=== PATIENT | male | born 1970 | race African-American/Black ===

== ENCOUNTER 2022-04-09 06:29 | Emergency (ER) | payer MEDICAID, OTHER ==
[~2022-04-09] VITALS: Ht 180.3 cm; Wt 110.0 kg
[2022-04-09 06:58] LABS: Basophils # (auto) 0 10 ^3/uL (0-0.2); Basophils % (auto) 0.6 % (0.0-2.0); Eosinophils # (auto) 0.1 10 ^3/uL (0-0.8); Eosinophils % (auto) 4.2 % (0.0-7.0); Hematocrit 39.7 % (41.0-53.0); Hemoglobin 12.9 g/dL (13.5-17.5); Lymphocytes # (auto) 0.8 10 ^3/uL (0.4-5.4); Lymphocytes % (auto) 29.6 % (10.0-50.0); Mean Corpuscular Hemoglobin 30.1 pg (28.0-32.0); Mean Corpuscular Hgb Conc. 32.5 g/dL (32.0-36.0); Mean Corpuscular Volume 92.6 fL (80.0-100.0); Monocytes # (auto) 0.2 10 ^3/uL (0-1.3); Monocytes % (auto) 7.1 % (0.0-12.0); Neutrophils # (auto) 1.6 10 ^3/uL (1.6-8.6); Neutrophils % (auto) 58.5 % (37.0-80.0); Nucleated Red Blood Cells % 0.3 %; Red Blood Cells 4.29 10^6/uL (4.5-5.90); Red Cell Distribution Width 13.6 % (11.8-14.3); White Blood Cell 2.7 10^3/uL (4.4-10.8)
[2022-04-09 07:13] LABS: INR 0.99 (0.9-1.15); Partial Thromboplastin Time 29.6 sec (24.6-33.4)
[2022-04-09 07:15] LABS: Albumin 3.6 g/dL (3.4-5.0); BUN/Creatinine Ratio 10.9; Calcium 9.4 mg/dL (8.5-10.1); Potassium 4.5 mmol/L (3.5-5.1)
[2022-04-09 07:17] LABS: Bilirubin, Total 0.6 mg/dL (0.2-1.0); Total Protein 7.2 g/dL (6.4-8.2)
[2022-04-09] MEDS ORDERED: HYDROcodone-ACET 5/325MG TAB PO ONE (08:30)
[2022-04-09] MEDS ORDERED: CYCLOBENZAPRINE HCL 10 MG TAB PO ONE (08:30)
[2022-04-09 09:22] VITALS: BP 142/93
== END 2022-04-09 09:24 | disposition home or self-care (01) ==
LOC: ER 06:29
DX: M62.830 Muscle spasm of back (principal); R07.89 Other chest pain; N17.9 Acute kidney failure, unspecified; D72.819 Decreased white blood cell count, unspecified; Z88.0 Allergy status to penicillin
CPT/HCPCS: 36415; 71045; 80053; 83880; 84484; 85025; 85610; 85730; 93005

== ENCOUNTER 2023-08-21 01:43 | Emergency (ER) | payer MEDICAID ==
[~2023-08-21] VITALS: Ht 180.3 cm; Wt 112.4 kg
[2023-08-21 02:49] LABS: Basophils # (auto) 0.1 10 ^3/uL (0-0.2); Basophils % (auto) 1.2 % (0.0-2.0); Eosinophils # (auto) 0.1 10 ^3/uL (0-0.8); Hematocrit 33.4 % (41.0-53.0); Lymphocytes # (auto) 0.3 10 ^3/uL (0.4-5.4); Lymphocytes % (auto) 5.8 % (10.0-50.0); Mean Corpuscular Hemoglobin 29.7 pg (28.0-32.0); Monocytes # (auto) 0.3 10 ^3/uL (0-1.3); Monocytes % (auto) 6.2 % (0.0-12.0); Neutrophils # (auto) 3.7 10 ^3/uL (1.6-8.6); Neutrophils % (auto) 83.8 % (37.0-80.0); Nucleated Red Blood Cells % 0.1 %; Red Blood Cells 3.71 10^6/uL (4.5-5.90); Red Cell Distribution Width 13.9 % (11.8-14.3); White Blood Cell 4.4 10^3/uL (4.4-10.8)
[2023-08-21 03:07] LABS: Alanine Aminotransferase 20 U/L (7-40); Albumin 4.1 g/dL (3.2-4.8); Alkaline Phosphatase 58 U/L (46-116); Anion Gap 7 (5-15); Aspartate Aminotransferase 21 U/L (13-40); BUN/Creatinine Ratio 11.3 (10.0-20.0); Blood Urea Nitrogen 18 mg/dL (9-23); Calcium 9.4 mg/dL (8.7-10.4); Carbon Dioxide 23 mmol/L (20-30); Chloride 105 mmol/L (98-107); Glucose 132 mg/dL (74-106); Potassium 3.8 mmol/L (3.5-5.1); Sodium 135 mmol/L (136-145)
[2023-08-21 03:08] LABS: Bilirubin, Total 0.7 mg/dL (0.2-1.0); Total Protein 6.8 g/dL (5.7-8.2)
[2023-08-21] MEDS: diphenhdrAMINE HCL 50 MG/1 ML VL ONE (03:36)
[2023-08-21] MEDS: SODIUM CHLORIDE 0.9% 1,000 ML IV ONE (03:36)
[2023-08-21] MEDS: diphenhdrAMINE HCL 50 MG/1 ML VL IV ONE (03:37)
[2023-08-21] MEDS: IBUPROFEN 600 MG TAB PO ONE (03:45)
[2023-08-21] MEDS: ONDANSETRON HCL 4 MG/2 ML VIAL IV ONE (03:46)
[2023-08-21] MEDS: ACETAMINOPHEN 325 MG TAB PO ONE (03:46)
[2023-08-21] MEDS: MORPHINE SULFATE 4 MG/ML SYR/VIAL IV ONE (03:52)
[2023-08-21] MEDS: IOHEXOL 350 MG/ML 100ML IJ ONE (04:43)
[2023-08-21] MEDS ORDERED: AZIT500T66 PO (04:52)
[2023-08-21 05:10] VITALS: BP 115/76; PULSE 92; RESP 20; TEMP 98.2; O2SAT 97
== END 2023-08-21 05:17 | disposition home or self-care (01) ==
LOC: ER 01:43
DX: J18.9 Pneumonia, unspecified organism (principal); J91.8 Pleural effusion in other conditions classified elsewhere; Z98.890 Other specified postprocedural states; Z88.0 Allergy status to penicillin; Z91.018 Allergy to other foods
CPT/HCPCS: 36415; 71045; 71260; 74177; 80053; 83605; 83690; 83880; 84484; 85025; 93005; 96361; 96374; 96375; 99285; J1200; J2270; J2405; J7030; Q9967